=== PATIENT | female | born 1965 | race American Indian/Alaskan Native ===

== ENCOUNTER 2017-12-22 17:33 | Observation (INO) | payer OTHER ==
--- NOTE | 2017-12-22 20:52 | Emergency Department Report ---
Blank Doc - Documentation Documentation: She is a 52-year-old female past history of coronary artery disease who presents with chest pain and leg swelling. Her physician is Dr. Rivas. I will order blood work and will re-evaluate the patient.
[2017-12-22 21:58] LABS: Basophils # (Auto) 0.1 K/mm3 (0.0-0.1); Basophils % (Auto) 0.8 % (0.0-1.8); Eosinophils # (Auto) 0.1 K/mm3 (0.0-0.4); Eosinophils % (Auto) 1.3 % (0.0-4.3); Hematocrit 36.2 % (30.3-42.9); Hemoglobin 12.2 gm/dl (10.1-14.3); Lymphocytes # (Auto) 2.5 K/mm3 (1.2-5.4); Lymphocytes % (Auto) 36.9 % (13.4-35.0); Mean Corpuscular HGB Conc 34 % (30-34); Mean Corpuscular Hemoglobin 30 pg (28-32); Mean Corpuscular Volume 89 fl (79-97); Monocytes # (Auto) 0.6 K/mm3 (0.0-0.8); Monocytes % (Auto) 9.2 % (0.0-7.3); Platelet Count 283 K/mm3 (140-440); Red Blood Count 4.06 M/mm3 (3.65-5.03)
--- NOTE | 2017-12-22 22:00 | XRay Report ---
FINAL REPORT PROCEDURE: XR CHEST ROUTINE 2V TECHNIQUE: PA and lateral chest radiographs were obtained. CPT 71419 HISTORY: sob COMPARISON: No prior studies are available for comparison. FINDINGS: Heart: Normal. Mediastinum/Vessels: Normal. Lungs/Pleural space: Normal. Bony thorax: No acute osseous abnormality. Other: IMPRESSION: Normal examination.
[2017-12-22 22:40] LABS: BUN/Creatinine Ratio 30; Blood Urea Nitrogen 18 mg/dL (7-17); Calcium 9.1 mg/dL (8.4-10.2); Hemolysis Index 52
--- NOTE | 2017-12-22 22:44 | Emergency Department Report ---
ED Chest Pain HPI - General Chief Complaint: Chest Pain Stated Complaint: CHEST PAIN/LEG SWELLING Time Seen by Provider: 12/22/17 22:35 Source: patient Mode of arrival: Ambulatory Limitations: No Limitations - History of Present Illness Initial Comments: pt. is here complaining of chest pain on the left side of the chest sharp non radiating with aggrav. with exertion and no relieving factor. she also complains of sob. and right leg swelling that started today. she said she as been having intermittent chest pain . MD Complaint: chest pain -: Gradual Onset: during exertion Pain Location: left chest Pain Radiation: none Severity: moderate Quality: sharp Consistency: intermittent Improves With: nothing Worsens With: exertion re: dyspnea Treatments Prior to Arrival: none - Related Data Previous Rx's Medication Instructions Recorded Last Taken Type Ibuprofen [Motrin] 600 mg PO Q8H PRN #30 tablet 02/17/14 Unknown Rx traMADol [Ultram 50 MG tab] 50 mg PO Q6HR PRN #20 tablet 02/17/14 Unknown Rx Allergies Allergy/AdvReac Type Severity Reaction Status Date / Time Penicillins Allergy Shortness Verified 02/17/14 04:43 of Breath Heart Score - HEART Score History: Moderately suspicious EKG: Normal Age: 45-65 Risk factors: > 3 risk factors or hx of atherosclerotic disease Troponin: < normal limit HEART Score: 4 ED Review of Systems ROS: Stated complaint: CHEST PAIN/LEG SWELLING Other details as noted in HPI Comment: All other systems reviewed and negative ED Past Medical Hx - Past Medical History Previous Medical History?: Yes Hx Hypertension: Yes Hx Diabetes: Yes Additional medical history: HEART ATTACK 2007 - Surgical History Past Surgical History?: No - Social History Smoking Status: Never Smoker - Medications Home Medications: Home Medications Medication Instructions Recorded Confirmed Last Taken Type Ibuprofen [Motrin] 600 mg PO Q8H PRN #30 tablet 02/17/14 Unknown Rx traMADol [Ultram 50 MG tab] 50 mg PO Q6HR PRN #20 tablet 02/17/14 Unknown Rx ED Physical Exam - General Limitations: No Limitations General appearance: alert, in no apparent distress - Head Head exam: Present: atraumatic, normocephalic - Eye Eye exam: Present: normal appearance - ENT ENT exam: Present: mucous membranes moist - Neck Neck exam: Present: normal inspection - Respiratory Respiratory exam: Present: normal lung sounds bilaterally. Absent: respiratory distress - Cardiovascular Cardiovascular Exam: Present: regular rate, normal rhythm, other (ttp of the left side of the chest wall). Absent: systolic murmur, diastolic murmur, rubs, gallop - GI/Abdominal GI/Abdominal exam: Present: soft, normal bowel sounds. Absent: tenderness - Extremities Exam Extremities exam: Present: normal inspection - Back Exam Back exam: Present: normal inspection, full ROM - Neurological Exam Neurological exam: Present: alert, oriented X3 - Psychiatric Psychiatric exam: Present: normal affect, normal mood - Skin Skin exam: Present: warm, dry, intact, normal color. Absent: rash ED Course Vital Signs 12/22/17 12/22/17 12/22/17 17:48 22:06 22:11 Temperature 98.4 F Pulse Rate 79 87 75 Respiratory 18 26 H Rate Blood Pressure 111/38 O2 Sat by Pulse 100 100 Oximetry 12/22/17 12/22/17 12/22/17 22:21 22:30 22:41 Temperature Pulse Rate 92 H 79 91 H Respiratory 28 H 28 H 22 Rate Blood Pressure 124/62 121/60 121/60 O2 Sat by Pulse 100 99 93 Oximetry 12/22/17 12/22/17 12/22/17 22:49 22:51 22:55 Temperature 98.6 F Pulse Rate 92 H 95 H 84 Respiratory 24 28 H 16 Rate Blood Pressure 137/63 137/63 137/63 O2 Sat by Pulse 98 100 100 Oximetry 12/22/17 12/22/17 12/22/17 23:01 23:05 23:11 Temperature Pulse Rate 83 95 H 77 Respiratory 20 26 H 26 H Rate Blood Pressure 137/63 137/63 137/63 O2 Sat by Pulse 99 98 100 Oximetry 12/22/17 12/22/17 12/22/17 23:15 23:21 23:25 Temperature Pulse Rate 82 84 84 Respiratory 30 H 22 21 Rate Blood Pressure 137/63 137/63 137/63 O2 Sat by Pulse 99 99 99 Oximetry 12/22/17 12/22/17 12/22/17 23:31 23:35 23:41 Temperature Pulse Rate 88 87 99 H Respiratory 21 20 23 Rate Blood Pressure 137/63 137/63 137/63 O2 Sat by Pulse 98 98 100 Oximetry 12/22/17 12/22/17 12/22/17 23:45 23:51 23:55 Temperature Pulse Rate 89 83 82 Respiratory 23 22 22 Rate Blood Pressure 137/63 137/63 137/63 O2 Sat by Pulse 99 98 98 Oximetry 12/23/17 12/23/17 12/23/17 00:01 00:05 00:11 Temperature Pulse Rate 86 84 95 H Respiratory 21 22 23 Rate Blood Pressure 137/63 137/63 137/63 O2 Sat by Pulse 98 98 97 Oximetry 12/23/17 12/23/17 12/23/17 00:15 00:21 00:25 Temperature Pulse Rate 100 H 86 88 Respiratory 21 24 19 Rate Blood Pressure 137/63 137/63 137/63 O2 Sat by Pulse 98 97 96 Oximetry 12/23/17 12/23/17 12/23/17 00:31 00:35 00:41 Temperature Pulse Rate 84 89 85 Respiratory 21 23 22 Rate Blood Pressure 137/63 137/63 137/63 O2 Sat by Pulse 98 97 97 Oximetry 12/23/17 12/23/17 12/23/17 00:45 00:51 00:55 Temperature Pulse Rate 83 96 H 84 Respiratory 21 22 22 Rate Blood Pressure 137/63 137/63 137/63 O2 Sat by Pulse 97 97 98 Oximetry RENNY score - Renny Score Age > 65: (0) No Aspirin use within the Past 7 Days: (1) Yes 3 or more CAD Risk Factors: (1) Yes 2 or more Angina events in past 24 hrs: (0) No Known CAD with more than 50% Stenosis: (0) No Elevated Cardiac Markers: (0) No ST Deviation Greater than 0.5mm: (0) No RENNY Score: 2 ED Medical Decision Making - Lab Data Result diagrams: 12/22/17 21:44 12/22/17 21:44 - EKG Data -: EKG Interpreted by Me EKG shows normal: sinus rhythm (normal), axis (normal), intervals (normal), QRS complexes (normal), ST-T waves (normal) Rate: normal (rate is 70) - Radiology Data Radiology results: report reviewed - Medical Decision Making i spoke to Dr Howard who as accepted the patient for admission Critical care attestation.: If time is entered above; I have spent that time in minutes in the direct care of this critically ill patient, excluding procedure time. ED Disposition Clinical Impression: Chest pain Disposition: OP ADMIT IP TO THIS HOSP Is pt being admited?: Yes Does the pt Need Aspirin: Yes Condition: Stable Instructions: Chest Pain (ED) Referrals: DANIKA ZAMORA MD [Primary Care Provider] - 3-5 Days Time of Disposition: 01:49
[2017-12-22 23:41] LABS: Alanine Aminotransferase 12 units/L (7-56); Albumin 3.9 g/dL (3.9-5)
[2017-12-22 23:42] LABS: Bilirubin,Direct < 0.2 mg/dL (0-0.2)
[2017-12-23] MEDS ORDERED: BABY ASPIRIN PO ONE (01:50)
[2017-12-23] MEDS ORDERED: SODIUM CHLORIDE FLUSH SYRINGE 10 ML IV PRN ×2 (02:38)
[2017-12-23] MEDS ORDERED: ZOFRAN IV PRN (02:38)
[2017-12-23] MEDS ORDERED: NITROSTAT SL PRN (02:38)
[2017-12-23] MEDS ORDERED: AMBIEN PO PRN (02:38)
[2017-12-23] MEDS ORDERED: PROVENTIL IH PRN (02:38)
[2017-12-23] MEDS ORDERED: TYLENOL PO PRN (02:38)
[2017-12-23] MEDS ORDERED: ULTRAM PO PRN (02:44)
[2017-12-23] MEDS ORDERED: BABY ASPIRIN ONE (02:59)
[2017-12-23] MEDS ORDERED: NACL 0.9% 1000 ML 1,000 ML IV SCH (03:00)
[2017-12-23 05:54] VITALS: BP 115/62
[2017-12-23] MEDS ORDERED: LOVENOX SUB-Q SCH (10:00)
[2017-12-23] MEDS ORDERED: SODIUM CHLORIDE FLUSH SYRINGE 10 ML IV SCH (10:00)
[2017-12-23] MEDS ORDERED: PEPCID IV SCH (10:00)
[2017-12-24] MEDS ORDERED: ECOTRIN PO SCH (10:00)
== END 2017-12-23 05:59 | disposition left against medical advice (07) ==
LOC: ED 17:33 → 3A 12-23 01:50 → 4A 12-23 02:59 → UNDODISOB 12-26 08:30
PROVIDERS: ADMIT Internal Medicine Geriatric Medicine; ATTEND Internal Medicine Geriatric Medicine
DX: R07.89 Other chest pain (principal); M79.89 Other specified soft tissue disorders; I10 Essential (primary) hypertension; I25.10 Atherosclerotic heart disease of native coronary artery without angina pectoris; E11.9 Type 2 diabetes mellitus without complications; I25.2 Old myocardial infarction; Z53.21 Procedure and treatment not carried out due to patient leaving prior to being seen by health care provider
CPT/HCPCS: 36415; 71046; 80048; 80074; 83036; 83880; 84484; 85025; 85379; 93005; 93010; 99285; G0378

== ENCOUNTER 2018-06-11 23:39 | Emergency (ER) | payer OTHER ==
[2018-06-12] MEDS ORDERED: TYLENOL PO ONE (02:06)
--- NOTE | 2018-06-12 03:06 | XRay Report ---
FINAL REPORT EXAM: XR CHEST ROUTINE 2V HISTORY: BLE edema, h/o CHF TECHNIQUE: PA and lateral views of the chest were obtained and compared to the study of 12/22/2017. FINDINGS: The heart size and mediastinum appear normal. The lungs are clear. Pleural fluid is not seen. The skeletal structures do not show any acute changes. IMPRESSION: No acute cardiopulmonary process.
[2018-06-12 04:22] LABS: Basophils % (Auto) 0.4 % (0.0-1.8); Eosinophils # (Auto) 0.2 K/mm3 (0.0-0.4); Eosinophils % (Auto) 3.4 % (0.0-4.3); Hematocrit 33.7 % (30.3-42.9); Hemoglobin 11.9 gm/dl (10.1-14.3); Lymphocytes # (Auto) 2.4 K/mm3 (1.2-5.4); Lymphocytes % (Auto) 37.1 % (13.4-35.0); Mean Corpuscular HGB Conc 35 % (30-34); Mean Corpuscular Hemoglobin 32 pg (28-32); Mean Corpuscular Volume 90 fl (79-97); Monocytes # (Auto) 0.5 K/mm3 (0.0-0.8); Platelet Count 278 K/mm3 (140-440); Red Blood Count 3.76 M/mm3 (3.65-5.03); Red Cell Distribution Width 14.1 % (13.2-15.2)
[2018-06-12 04:37] LABS: Alanine Aminotransferase 13 units/L (7-56); Albumin 3.9 g/dL (3.9-5); BUN/Creatinine Ratio 20; Blood Urea Nitrogen 14 mg/dL (7-17); Calcium 9.1 mg/dL (8.4-10.2); Hemolysis Index 10
[2018-06-12 09:39] VITALS: BP 120/64
--- NOTE | 2018-06-12 10:38 | Emergency Department Report ---
ED General Adult HPI - General Chief complaint: Extremity Problem,Nontraumatic Stated complaint: BILATERAL LEG,FOOT,RIGHT EAR PAIN Time Seen by Provider: 06/12/18 09:44 Source: patient Mode of arrival: Ambulatory Limitations: No Limitations - History of Present Illness Initial comments: Patient presents to the emergency department with chief complaint of leg swelling. Patient is also wanting medication refills. Patient states she is not able to follow with her primary care physician due to cost concerns. Patient denies any chest pain, shortness breath, headache, abdominal pain. -: Gradual Radiation: non-radiation Severity scale (0 -10): 0 Improves with: none Worsens with: none Associated Symptoms: denies other symptoms Treatments Prior to Arrival: none - Related Data Previous Rx's Medication Instructions Recorded Last Taken Type Ibuprofen [Motrin] 600 mg PO Q8H PRN #30 tablet 02/17/14 Unknown Rx traMADol [Ultram 50 MG tab] 50 mg PO Q6HR PRN #20 tablet 02/17/14 Unknown Rx ALBUTEROL NEB's [Proventil 0.083% 2.5 mg IH Q3HRT PRN #30 nebu 12/23/17 Unknown Rx NEBS] AtorvaSTATin [Lipitor] 20 mg PO QHS #30 tablet 12/23/17 Unknown Rx Furosemide [Lasix] 20 mg PO QDAY #30 tablet 12/23/17 Unknown Rx Nitroglycerin [Nitrostat] 0.4 mg SL Q5M PRN #21 tablet 12/23/17 Unknown Rx metFORMIN [Glucophage] 500 mg PO BID #60 tablet 12/23/17 Unknown Rx AtorvaSTATin [Lipitor] 20 mg PO QHS #30 tab 06/12/18 Unknown Rx Furosemide [Lasix] 20 mg PO DAILY #20 tablet 06/12/18 Unknown Rx Nitroglycerin [Nitrostat] 0.4 mg SL Q5M PRN #21 tab 06/12/18 Unknown Rx metFORMIN [Glucophage] 500 mg PO BID #60 tablet 06/12/18 Unknown Rx Allergies Allergy/AdvReac Type Severity Reaction Status Date / Time Penicillins Allergy Shortness Verified 02/17/14 04:43 of Breath ED Review of Systems ROS: Stated complaint: BILATERAL LEG,FOOT,RIGHT EAR PAIN Other details as noted in HPI Comment: All other systems reviewed and negative Constitutional: denies: chills, fever Eyes: denies: eye pain, eye discharge, vision change ENT: denies: ear pain, throat pain Respiratory: denies: cough, shortness of breath, wheezing Cardiovascular: denies: chest pain, palpitations Endocrine: no symptoms reported Gastrointestinal: denies: abdominal pain, nausea, diarrhea Genitourinary: denies: urgency, dysuria, discharge Musculoskeletal: denies: back pain, joint swelling, arthralgia Skin: denies: rash, lesions Neurological: denies: headache, weakness, paresthesias Psychiatric: denies: anxiety, depression Hematological/Lymphatic: denies: easy bleeding, easy bruising ED Past Medical Hx - Past Medical History Previous Medical History?: Yes Hx Hypertension: Yes Hx Heart Attack/AMI: Yes (x2, most recent 2007) Hx Congestive Heart Failure: Yes Hx Diabetes: Yes Additional medical history: HEART ATTACK 2007 - Surgical History Past Surgical History?: No - Social History Smoking Status: Never Smoker Substance Use Type: None - Medications Home Medications: Home Medications Medication Instructions Recorded Confirmed Last Taken Type Ibuprofen [Motrin] 600 mg PO Q8H PRN #30 tablet 02/17/14 Unknown Rx traMADol [Ultram 50 MG tab] 50 mg PO Q6HR PRN #20 tablet 02/17/14 Unknown Rx ALBUTEROL NEB's [Proventil 0.083% 2.5 mg IH Q3HRT PRN #30 nebu 12/23/17 Unknown Rx NEBS] AtorvaSTATin [Lipitor] 20 mg PO QHS #30 tablet 12/23/17 Unknown Rx Furosemide [Lasix] 20 mg PO QDAY #30 tablet 12/23/17 Unknown Rx Nitroglycerin [Nitrostat] 0.4 mg SL Q5M PRN #21 tablet 12/23/17 Unknown Rx metFORMIN [Glucophage] 500 mg PO BID #60 tablet 12/23/17 Unknown Rx AtorvaSTATin [Lipitor] 20 mg PO QHS #30 tab 06/12/18 Unknown Rx Furosemide [Lasix] 20 mg PO DAILY #20 tablet 06/12/18 Unknown Rx Nitroglycerin [Nitrostat] 0.4 mg SL Q5M PRN #21 tab 06/12/18 Unknown Rx metFORMIN [Glucophage] 500 mg PO BID #60 tablet 06/12/18 Unknown Rx ED Physical Exam - General Limitations: No Limitations General appearance: alert, in no apparent distress - Head Head exam: Present: atraumatic, normocephalic - Eye Eye exam: Present: normal appearance, PERRL, EOMI - ENT ENT exam: Present: mucous membranes moist - Neck Neck exam: Present: normal inspection - Respiratory Respiratory exam: Present: normal lung sounds bilaterally. Absent: respiratory distress, wheezes, rales, rhonchi - Cardiovascular Cardiovascular Exam: Present: regular rate, normal rhythm. Absent: systolic murmur, diastolic murmur, rubs, gallop - GI/Abdominal GI/Abdominal exam: Present: soft, normal bowel sounds. Absent: distended, tenderness - Extremities Exam Extremities exam: Present: normal inspection, pedal edema - Back Exam Back exam: Present: normal inspection - Neurological Exam Neurological exam: Present: alert, oriented X3, CN II-XII intact. Absent: motor sensory deficit - Psychiatric Psychiatric exam: Present: normal affect, normal mood - Skin Skin exam: Present: warm, dry, intact, normal color. Absent: rash ED Course Vital Signs 06/12/18 06/12/18 06/12/18 00:18 01:58 02:10 Temperature 99.6 F 99.6 F Pulse Rate 88 85 Respiratory 18 18 18 Rate Blood Pressure 145/73 145/73 Blood Pressure [Right] O2 Sat by Pulse 98 97 Oximetry 06/12/18 06/12/18 06/12/18 03:10 09:37 09:39 Temperature 97.8 F Pulse Rate 61 Respiratory 18 16 16 Rate Blood Pressure Blood Pressure 120/64 [Right] O2 Sat by Pulse 100 100 Oximetry ED Medical Decision Making - Lab Data Result diagrams: 06/12/18 03:56 06/12/18 03:56 - Medical Decision Making Discussed results with the patient Discussed the need for primary care follow-up with patient Patient states she is not able to follow with her primary care physician because she is going through a divorce and not able to pay the co-pay Critical care attestation.: If time is entered above; I have spent that time in minutes in the direct care of this critically ill patient, excluding procedure time. ED Disposition Clinical Impression: Peripheral edema, Medication refill Disposition: DC-01 TO HOME OR SELFCARE Is pt being admited?: No Does the pt Need Aspirin: No Condition: Stable Instructions: Leg Edema (ED) Additional Instructions: return if worse Prescriptions: AtorvaSTATin [Lipitor] 20 mg PO QHS #30 tab Furosemide [Lasix] 20 mg PO DAILY #20 tablet metFORMIN [Glucophage] 500 mg PO BID #60 tablet Nitroglycerin [Nitrostat] 0.4 mg SL Q5M PRN #21 tab PRN Reason: Chest Pain Referrals: PRIMARY CARE,MD [Primary Care Provider] - 3-5 Days [facility] [Provider Group] - 3-5 Days [facility] [Provider Group] - 3-5 Days [facility] [Outside] - 3-5 Days Time of Disposition: 10:38
== END 2018-06-12 10:50 | disposition home or self-care (01) ==
LOC: ED 23:39
DX: R60.9 Edema, unspecified (principal); Z76.0 Encounter for issue of repeat prescription; I11.0 Hypertensive heart disease with heart failure; I50.9 Heart failure, unspecified; I25.2 Old myocardial infarction; E11.9 Type 2 diabetes mellitus without complications; Z88.0 Allergy status to penicillin
CPT/HCPCS: 36415; 71046; 80053; 83880; 85025; 99284

== ENCOUNTER 2019-11-15 20:42 | Emergency (ER) | payer MEDICAID, OTHER ==
[2019-11-15 21:05] VITALS: BP 147/57
--- NOTE | 2019-11-15 21:29 | Emergency Department Report ---
Blank Doc - Documentation Documentation: 53-year-old female that presents with URI symptoms x3 weeks and stated is gett ing worse with chills. This initial assessment/diagnostic orders/clinical plan/treatment(s) is/are subject to change based on patient's health status, clinical progression and re- assessment by fellow clinical providers in the ED. Further treatment and workup at subsequent clinical providers discretion. Patient/guardians urged not to elope from the ED as their condition may be serious if not clinically assessed and managed. Initial orders include: 1- Patient sent to [facility] for further evaluation and treatment 2- CXR
--- NOTE | 2019-11-15 21:59 | XRay Report ---
CHEST 2 VIEWS INDICATION: cough. COMPARISON: 12/22/2017 FINDINGS: Support devices: None. Heart: Within normal limits. Lungs: No acute air space or interstitial disease. Pleura: No significant pleural effusion. No pneumothorax. Additional findings: None. IMPRESSION: 1. No acute findings. Signer Name: Gustavo Blair MD Signed: 11/15/2019 9:55 PM Workstation Name: [id number]
--- NOTE | 2019-11-15 23:29 | Emergency Department Report ---
Chief Complaint: Upper Respiratory Infection Stated Complaint: COUGH X'S 3 WEEKS Time Seen by Provider: 11/15/19 21:29 - HPI History of Present Illness: 53-year-old -Citizen Of The [place] female presents to the emergency room for cough x3 weeks with chills. Patient is taken nothing for her cough. Patient denies any fever no nausea no vomiting. Patient has a past medical history of congestive heart failure, diabetes, heart attack with stents. - Exam Vital Signs: Vital Signs 11/15/19 21:02 Temperature 97.7 F Pulse Rate 71 Respiratory 18 Rate Blood Pressure 147/57 O2 Sat by Pulse 100 Oximetry Physical Exam: Patient is alert and oriented x3 no acute distress nontoxic in appearance Oropharynx is moist Chest clear to auscultation bilateral Cardiac regular rate and rhythm no murmurs appreciated Patient is amatory without difficulties. MSE screening note: Focused history and physical exam performed. Due to findings the following was ordered: 53-year-old -Citizen Of [place] female presents to the emergency room for cough x3 weeks with chills. Patient is taken nothing for her cough. Patient denies any fever no nausea no vomiting. Patient has a past medical history of congestive heart failure, diabetes, heart attack with stents. Chest x-ray is negative. Patient is afebrile. Exam is within normal limits. Discussed with patient she can take [id number] Robitussin and Claritin. Discussed with patient she needs to follow-up with her primary care provider. ED Medical Decision Making - Radiology Data Radiology results: report reviewed Patient: ROSEMARIE ENGLISH MR#: [id number] : 1965 Acct:[id number] Age/Sex: 53 / F ADM Date: 11/15/19 Loc: ED Attending Dr: Ordering Physician: ISIDRA SWENSON NP Date of Service: 11/15/19 Procedure(s): XR chest routine 2V Accession Number(s): [id number] cc: ISIDRA SWENSON NP Fluoro Time In Minutes: CHEST 2 VIEWS INDICATION: cough. COMPARISON: 12/22/2017 FINDINGS: Support devices: None. Heart: Within normal limits. Lungs: No acute air space or interstitial disease. Pleura: No significant pleural effusion. No pneumothorax. Additional findings: None. IMPRESSION: 1. No acute findings. Signer Name: Gustavo Blair MD Signed: 11/15/2019 9:55 PM Workstation Name: [email or web address] Transcribed By: WG Dictated By: Gustavo Blair MD Electronically Authenticated By: Gustavo Blair MD Signed Date/Time: 11/15/192154 DD/ 53 TD/TT: ED Disposition for MSE Clinical Impression: Cough Disposition: - MED SCREENING EXAM-LEFT Is pt being admited?: No Does the pt Need Aspirin: No Condition: Stable Instructions: Guaifenesin (By mouth) Additional Instructions: Chest x-ray is negative. Patient is afebrile. Exam is within normal limits. Discussed with patient she can take [id number] Robitussin and Claritin. Discussed with patient she needs to follow-up with her primary care provider. Referrals: PRIMARY MD LATRICE [Primary Care Provider] - 3-5 Days
== END 2019-11-15 23:52 | disposition left against medical advice (07) ==
LOC: ED 20:42
DX: R05 Cough (principal); I50.9 Heart failure, unspecified; E11.9 Type 2 diabetes mellitus without complications; I25.2 Old myocardial infarction; Z95.818 Presence of other cardiac implants and grafts
CPT/HCPCS: 71046; 99282